=== PATIENT | female | born 1960 | race African-American/Black ===

== ENCOUNTER 2018-10-25 15:53 | Emergency (ER) | payer MEDICAID, MEDICARE ==
[~2018-10-25] VITALS: Ht 170.2 cm; Wt 73.0 kg
[2018-10-25 15:55] VITALS: BP 151/67; PULSE 78; RESP 18; Ht 170.2 cm; Wt 73.0 kg
== END 2018-10-25 17:48 | disposition left against medical advice (07) ==
LOC: FTE 15:53
DX: Z53.21 Procedure and treatment not carried out due to patient leaving prior to being seen by health care provider (principal)